=== PATIENT | female | born 1960 | race Caucasian/White ===

== ENCOUNTER → 2019-12-16 | Outpatient (REF) | payer OTHER ==
[~2019-12-16] MED LIST: ADVAIR INH; LEVOTHYROXINE PO; PRO AIR INH; VICODINES TAB OR; [UNRECOGNIZED DRUG - OTHER] PO; diclofenac PR
== END ==
LOC: M LAB REF 16:03
PROVIDERS: ATTEND Ophthalmology
DX: L82.0 Inflamed seborrheic keratosis (principal)